=== PATIENT | male | born 1965 | race Caucasian/White ===

== ENCOUNTER 2020-05-23 03:35 | Emergency (ER) | payer BC ==
[2020-05-23 04:06] VITALS: BMI 26.6
--- NOTE | 2020-05-23 04:30 | PDOC ---
Attending Attestation - [facility] Attending Attestation I have performed the following: I have examined & evaluated the patient, The case was reviewed & discussed with the resident, I agree w/resident's findings & plan, Exceptions are as noted - HPI HPI: 05/23/20 05:34 55 yo M h/o HTN p/w elevated BP at home. Patient woke up in the middle of the night with a burning sensation in his L upper thigh and he took his BP and saw it was elevated which prompted him to come to the ED. Burning sensation has since resolved. Denies CP,SOB, dizziness/lightheadedness or n/v. Currently withotu any medical complaints. - Physicial Exam PE: 05/23/20 05:36 General: well appearing HEENT: NCAT Chest: CTAB, good air entry CVS: + s1 s2, RRR - Medical Decision Making 05/23/20 05:37 55 yo M here with asymptomatic HTN no indication for additional workup at this time. Plan: -d/ with return precautions and rx for 1 week of lisinopril as patient ran out and has been unable to get a refill yet from his PMD, recommend PMD f/u This clinical encounter is taking place during a federal and state health care emergency attributable to the novel [place] Virus pandemic. The [place] of the Department of Health and Human Services has declared, pursuant to the Public Health Service Act 319F-3 (42 U.S.C. 247d-6d), that a covered persons activities related to medical countermeasures against COVID-19 will be immune from liability under Federal and State law. Discharge - Discharge Information Problems reviewed: Yes Clinical Impression/Diagnosis: Hypertension Qualifiers: Hypertension type: unspecified Qualified Code(s): I10 - Essential (primary) hypertension Condition: Good Disposition: HOME - Follow up/Referral Referrals: Hal Galeana MD [Primary Care Provider] - - Patient Discharge Instructions - Post Discharge Activity
[2020-05-23 05:07] VITALS: BP 158/91; PULSE 16; TEMP 98
--- NOTE | 2020-05-23 05:48 | PDOC ---
History of Present Illness - General Chief Complaint: Blood Pressure Problem Stated Complaint: HIGH BP Time Seen by Provider: 05/23/20 04:30 - History of Present Illness Initial Comments: 05/23/20 06:06 55yo M h/o HTN p/w high BP per home monitor. He woke up feeling his pressure was high, so he took his pressure. He got 180s/110s on both arms, twice, so he came in for evaluation. He does not c/o any symptoms in the ED. Denies vision changes, headaches, extremitiy paresthesia, dizziness, CP, SOB. Past History - Travel History Traveled outside of the country in the last 30 days: No Close contact w/someone who was outside of country & ill: No - Medical History Allergies/Adverse Reactions: Allergies Allergy/AdvReac Type Severity Reaction Status Date / Time No Known Allergies Allergy Verified 05/23/20 04:05 Home Medications: Ambulatory Orders Lisinopril/Hydrochlorothiazide [Lisinopril-Hctz 20-25 mg Tab] 1 each PO DAILY 7 Days #7 tablet 05/23/20 Diabetes: Yes HTN: Yes - Psycho-Social/Smoking History Smoking History: Never smoked Information on smoking cessation initiated: No - Substance Abuse Hx (Audit-C & DAST Scrn) How often the patient has a drink containing alcohol: Never Number of drinks the patient has on a typical day: 1 or 2 How often the patient has six or more drinks on one occasion: Never Score: In Men: 4 or > Positive; In Women: 3 or > Positive: 0 Screen Result (Pos requires Nsg. Audit-10AR): Negative In the last yr the pt used illegal drug/Rx for NonMed reason: No Score: Yes response is considered Positive: 0 Screen Result (Positive result requires Nsg. DAST-10): Negative Review of Systems - Review of Systems Able to Perform ROS?: Yes Is the patient limited Hungarian proficient: Yes Constitutional: No: Chills, Diaphoresis, Fever, Weakness HEENTM: No: Eye Pain, Blurred Vision, Double Vision, Tinnitus Respiratory: No: Cough Cardiac (ROS): No: Chest Pain, Irregular Heart Rate, Palpitations, Chest Tig htness ABD/GI: No: Symptoms Reported, Nausea, Vomiting : No: Symptoms Reported Musculoskeletal: No: Symptoms Reported, Back Pain, Muscle Pain Integumentary: No: Pallor, Rash Neurological: No: Headache, Tingling Endocrine: No: Symptoms Reported Hematologic/Lymphatic: No: Symptoms Reported *Physical Exam - Vital Signs Last Vital Signs Temp Pulse Resp BP Pulse Ox 98 F 16 L 16 158/91 98 05/23/20 05:06 05/23/20 05:06 05/23/20 03:54 05/23/20 05:06 05/23/20 05:06 - Physical Exam General Appearance: Yes: Nourished, Appropriately Dressed. No: Apparent Distress HEENT: positive: EOMI, Normal Voice, Pharynx Normal Neck: positive: Trachea midline, Supple. negative: Tender Respiratory/Chest: positive: Normal Breath Sounds. negative: Chest Tender, Lungs Clear, Respiratory Distress, Accessory Muscle Use Cardiovascular: positive: Regular Rhythm, Regular Rate, S1, S2 Gastrointestinal/Abdominal: positive: Normal Bowel Sounds, Soft Male Genitalia: negative: CVAT Musculoskeletal: positive: Normal Inspection. negative: CVA Tenderness Extremity: positive: Normal Capillary Refill, Normal Inspection Integumentary: positive: Normal Color, Dry, Warm Neurologic: positive: Fully Oriented, Alert, Normal Mood/Affect Medical Decision Making - Medical Decision Making 05/23/20 06:21 Pt is asymptomatic. Will d/c and send 1wk Rx to pharmacy. Discharge - Discharge Information Problems reviewed: Yes Clinical Impression/Diagnosis: Hypertension Qualifiers: Hypertension type: unspecified Qualified Code(s): I10 - Essential (primary) hypertension Condition: Good Disposition: HOME - Additional Discharge Information Prescriptions: Lisinopril/Hydrochlorothiazide [Lisinopril-Hctz 20-25 mg Tab] 1 each PO DAILY 7 Days #7 tablet - Follow up/Referral Referrals: Hal Galeana MD [Primary Care Provider] - - Patient Discharge Instructions Patient Printed Discharge Instructions: DI for High Blood Pressure, How to Monitor Your Blood Pressure at Home Additional Instructions: Lleg al departamento de emergencias porque renzo la presin arterial leann en el monitor de dao casa. Aqu en el departamento de emergencias no tuvo sntomas y nos dijo que no renzo ms medicamentos. Hemos enviado michel semana de dao medicamento a la farmacia. Michael un seguimiento con dao mdico de [place] Enriquez dentro de las 48 horas posteriores a dao salida del departamento de emergencias. Regrese si no puede comunicarse con el mdico o si presenta sntomas graves. Si el dolor en la radha [place], regrese. Print Language: ANDORRAN - Post Discharge Activity
== END 2020-05-23 05:59 | disposition home or self-care (01) ==
LOC: JER 03:35
DX: I10 Essential (primary) hypertension (principal)
CPT/HCPCS: 99283-25

== ENCOUNTER 2023-09-08 06:24 | Emergency (ER) | payer BC ==
[2023-09-08 06:45] VITALS: BMI 24.5
[2023-09-08 08:34] LABS: URINE APPEARANCE Error; URINE BILIRUBIN NEGATIVE (NEGATIVE); URINE COLOR YELLOW; URINE GLUCOSE (UA) TRACE (NEGATIVE); URINE KETONE NEGATIVE (NEGATIVE); URINE LEUK ESTERASE NEGATIVE (NEGATIVE); URINE NITRITE NEGATIVE (NEGATIVE); URINE PROTEIN NEGATIVE (NEGATIVE); URINE UROBILINOGEN 0.2 mg/dL (0.2-1.0)
[2023-09-08 08:42] LABS: EOS % 3.9 % (0-4.5); HEMATOCRIT 48.4 % (35.4-49); HEMOGLOBIN 16.1 GM/dL (11.7-16.9); LYMPH % 39.8 % (8-40); MCH 29.7 pg (25.7-33.7); MCHC 33.3 g/dl (32.0-35.9); MEAN CELL VOLUME 89.2 fl (80-96); MONO % 10.6 % (3.8-10.2); NEUT % 43.7 % (42.8-82.8); PLATELET COUNT 226 10^3/uL (134-434); RBC 5.43 M/mm3 (4.00-5.60); RDW 13.8 % (11.9-15.9); WHITE BLOOD COUNT 4.2 K/mm3 (4.0-10.0)
[2023-09-08 09:00] LABS: POTASSIUM 4.1 mmol/L (3.5-5.1)
[2023-09-08 09:03] LABS: ALBUMIN 4.7 g/dl (3.4-5.0); BLOOD UREA NITROGEN 10.3 mg/dL (7-18); MAGNESIUM 2.2 mg/dL (1.8-2.4)
[2023-09-08 09:07] LABS: BILIRUBIN,TOTAL 0.3 mg/dL (0.2-1)
[2023-09-08] MEDS ORDERED: LACTATED RINGERS SOLUTION 1000 ML INFUS.BAG IV ONE (09:53)
[2023-09-08 12:15] VITALS: BP 143/89; PULSE 70; RESP 16; TEMP 98.7
== END 2023-09-08 12:15 | disposition home or self-care (01) ==
LOC: JER 06:24
DX: R25.1 Tremor, unspecified (principal)
CPT/HCPCS: 36415; 70450-TC; 80053; 81003; 82962; 83735; 84484; 85025; 87086; 93005; 93010; 99285-25